=== PATIENT | female | born 1965 | race Caucasian/White ===

== ENCOUNTER → 2016-10-13 | Outpatient (CLI) | payer OTHER | LOC: FIMAGING 12:34 | PROVIDERS: ATTEND Obstetrics & Gynecology Gynecology | DX: Z12.31 Encounter for screening mammogram for malignant neoplasm of breast (principal); Z13.820 Encounter for screening for osteoporosis; M85.80 Other specified disorders of bone density and structure, unspecified site; Z82.62 Family history of osteoporosis | CPT/HCPCS: G0202 ==

== ENCOUNTER 2016-11-13 23:23 | Emergency (ER) | payer OTHER ==
[2016-11-13 23:29] VITALS: TEMP 98.2
[2016-11-13] MEDS ORDERED: PROPARACAINE 0.5% 15 ML OPHT DROP OP ONE (23:43)
--- NOTE | 2016-11-13 23:43 | EDPHY ---
H & P Stated Complaint: L eye injury Time Seen by Provider: 11/13/16 23:38 HPI/ROS: CHIEF COMPLAINT: Foreign body left eye HISTORY OF PRESENT ILLNESS: The patient is a 50-year-old female who comes to the emergency department complaining foreign body and painful sensation in her left eye. She states that the wind blew something into her eye around 5 o' clock this afternoon. It has hurt dramatically since that time. She does not wear contacts but occasionally wears glasses. She was using tetracaine at home but was told not to by her friend who is an career guidance counselor. She is an OR nurse. She has not had any discharge. She denies vision changes but has trouble opening left eye. REVIEW OF SYSTEMS: Constitutional: denies: chills, fever, recent illness, recent injury EENTM: See HPI Respiratory: denies: cough, shortness of breath Cardiac: denies: chest pain, irregular heart rate, lightheadedness, palpitations Gastrointestinal/Abdominal: denies: abdominal pain, diarrhea, nausea, vomiting, blood streaked stools Genitourinary: denies: dysuria, frequency, hematuria, pain Musculoskeletal: denies: joint pain, muscle pain Skin: denies: lesions, rash, jaundice, bruising Neurological: denies: headache, numbness, paresthesia, tingling, dizziness, weakness Hematologic/Lymphatic: denies: blood clots, easy bleeding, easy bruising Immunologic/allergic: denies: HIV/AIDS, transplant EXAM: GENERAL: Well-appearing, well-nourished and in no acute distress. HEAD: Atraumatic, normocephalic. EYES: Left pupil dilated, multiple small abrasions, slightly steamy, pupil is reactive. Intra-ocular pressure between 40 and 50 on [place]. Right eye is normal appearing with a intra-ocular pressure of 20. ENT: TMs normal, nares patent, oropharynx clear without exudates. Moist mucous membranes. NECK: Normal range of motion, supple without lymphadenopathy or JVD. LUNGS: Breath sounds clear to auscultation bilaterally and equal. No wheezes rales or rhonchi. HEART: Regular rate and rhythm without murmurs, rubs or gallops. ABDOMEN: Soft, nontender, normoactive bowel sounds. No guarding, no rebound. No masses appreciated. BACK: No CVA tenderness, no spinal tenderness, step-offs or deformities EXTREMITIES: Normal range of motion, no pitting or edema. No clubbing or cyanosis. NEUROLOGICAL: Cranial nerves II through XII grossly intact. Normal speech, normal gait. 5/5 strength, normal movement in all extremities, normal sensation PSYCH: Normal mood, normal affect. SKIN: Warm, dry, normal turgor, no visible rashes or lesions. Source: Patient Exam Limitations: No limitations - Personal History LMP (Females 10-55): 22-28 Days Ago Current Tetanus/Diphtheria Vaccine: Yes Current Tetanus Diphtheria and Acellular Pertussis (TDAP): Yes - Medical/Surgical History Hx Asthma: No Hx Chronic Respiratory Disease: No Hx Diabetes: No Hx Cardiac Disease: No Hx Renal Disease: No Hx Cirrhosis: No Hx Alcoholism: No Hx HIV/AIDS: No Hx Splenectomy or Spleen Trauma: No Other PMH: IVF, breast augmentation - Family History Significant Family History: No pertinent family hx - Social History Smoking Status: Never smoked Alcohol Use: Sober Drug Use: None Constitutional: Initial Vital Signs Temperature (C) 36.8 C 11/13/16 23:27 Heart Rate 74 11/13/16 23:27 Respiratory Rate 16 11/13/16 23:27 Blood Pressure 140/62 H 11/13/16 23:27 O2 Sat (%) 96 11/13/16 23:27 O2 Delivery Mode Room Air Allergies/Adverse Reactions: doxycycline [Doxycycline] Allergy (Mild, Verified 11/13/16 23:26) Sulfa (Sulfonamide Antibiotics) Allergy (Mild, Verified 11/13/16 23:26) Home Medications: Medication Instructions Recorded Aspirin 11/13/16 Celebrex 11/13/16 Medical Decision Making ED Course/Re-evaluation: Patient had a hard time completing acuity exam because it was so painful. Once it was dilated with proparacaine pain resolved however has noticed that her left pupil is dilated and slightly hazy. She states that her vision is hazy. Multiple small abrasions seen with fluorescein staining. Her intra-ocular pressure was measured between 40 and 50 in the left eye. 20 in the right. I spoke with Dr. Villela on the phone who will meet her in his office in 20 minutes. Differential Diagnosis: Partial list of the Differential diagnosis considered include but were not limited to; corneal abrasion, foreign body, acute glaucoma and although unlikely based on the history and physical exam, I also considered retinal detachment, retinal hemorrhage. I discussed these differential diagnoses and the plan with the patient as well as the usual and expected course. The patient understands that the diagnosis is provisional and that in medicine we are not always correct and that further workup is often warranted. Usual and customary warnings were given. All of the patient's questions were answered. The patient was instructed to return to the emergency department should the symptoms at all worsen or return, otherwise to followup with the physician as we discussed. - Data Points Medications Given: Discontinued Medications Proparacaine HCl (Alcaine 0.5%) 1 drops OP EDNOW ONE Stop: 11/13/16 23:44 Last Admin: 11/13/16 23:51 Dose: 1 drop Departure - Departure Disposition: Home, Routine, Self-Care Clinical Impression: Corneal abrasion Qualifiers: Encounter type: initial encounter Laterality: left Qualified Code(s): S05.02XA - Injury of conjunctiva and corneal abrasion without foreign body, left eye, initial encounter Glaucoma (increased eye pressure) Qualifiers: Glaucoma type: other Laterality: left Qualified Code(s): H40.89 - Other specified glaucoma Condition: Fair Instructions: Glaucoma (ED) Additional Instructions: Meet Dr. Villela at his office [address] at 12:320 a.m.. Referrals: NONE *PRIMARY CARE P,. [Primary Care Provider] - As per Instructions Leo Villela MD [Medical Doctor] - As per Instructions
[2016-11-13] MEDS ORDERED: FLUORESCEIN SODIUM 1 MG STRIP OP ONE (23:45)
[2016-11-14] MEDS ORDERED: KETOROLAC 0.5% 5 ML OPHT.BTL LEFTEYE ONE (00:01)
[2016-11-14 00:26] VITALS: BP 132/77; PULSE 88; RESP 14; O2SAT 98
== END 2016-11-14 00:17 | disposition home or self-care (01) ==
DX: S05.02XA Injury of conjunctiva and corneal abrasion without foreign body, left eye, initial encounter (principal); H40.89 Other specified glaucoma; Z79.82 Long term (current) use of aspirin; X58.XXXA Exposure to other specified factors, initial encounter

== ENCOUNTER → 2017-11-02 | Outpatient (CLI) | payer OTHER | LOC: FIMAGING 12:41 | PROVIDERS: ATTEND Obstetrics & Gynecology Gynecology | DX: Z12.31 Encounter for screening mammogram for malignant neoplasm of breast (principal) ==

== ENCOUNTER → 2018-11-09 | Outpatient (CLI) | payer OTHER | LOC: FIMAGING 11:05 | PROVIDERS: ATTEND Obstetrics & Gynecology Gynecology | DX: Z12.31 Encounter for screening mammogram for malignant neoplasm of breast (principal); Z13.820 Encounter for screening for osteoporosis; M85.89 Other specified disorders of bone density and structure, multiple sites ==